=== PATIENT | female | born 1930 | race Caucasian/White ===

== ENCOUNTER 2016-09-11 17:05 | Emergency (ER) | payer MEDICARE, BC ==
[2016-09-11] MEDS ORDERED: MORPHINE 2 MG/ML SYR ONE (18:53)
[2016-09-11] MEDS ORDERED: ONDANSETRON 4 MG VIAL ONE (18:53)
[2016-09-11] MEDS ORDERED: LIDOCAINE/EPI 1% MDV 20 ML ONE (18:53)
== END 2016-09-11 21:31 | disposition home or self-care (01) ==
LOC: ER 17:05
CPT/HCPCS: 12013; 70450 ×2; 70486 ×2; 96374 ×2; 96375 ×2; 99284; J2405